=== PATIENT | female | born 1960 | race African-American/Black ===

== ENCOUNTER 2018-12-21 10:10 | Outpatient (CLI) | payer OTHER ==
--- NOTE | 2018-12-21 11:27 | MRI ---
MRI Lumbar Spine Noncontrast: HISTORY: Lumbar radicular pain. Patient states low back pain radiates to right hip. Symptoms were present for one year. COMPARISON: None FINDINGS: The visualized retroperitoneal structures demonstrate a normal appearance. Conus medullaris is normal in morphology and terminates at the L1-2 level. 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 This does result in S-shaped scoliotic curvature of the thoracolumbar spine. Normal signal intensity is demonstrated in the bone marrow. There is a left paracentral disc protrusion seen at the level of the vertebral anomaly on the left at the T10-12 level as there is a hemivertebra on the right at this level. Please see images for better delineation of this region. L1-2: No significant disc bulge or disc herniation. Mild facet degenerative changes are present. Neur al foramina are patent. L2-3: There is a mild disc osteophyte complex. Facet hypertrophic changes are noted. Findings result in mild narrowing of the central spinal canal with minimal right-sided neural foraminal narrowing. The left neural foramen is patent. L3-4: Mild disc osteophyte complex and facet hypertrophic changes. There is minimal effacement of the ventral aspect of the thecal sac with minimal bilateral neural foraminal narrowing. L4-5: There is a mild disc osteophyte complex and moderate facet hypertrophic changes. Findings resul t in mild narrowing of the central spinal canal with mild right-sided neural foraminal narrowing. The left neural foramen is patent L5-S1: There is a mild disc osteophyte complex present which does not result in significant narrowing central spinal canal. Facet hypertrophic changes are present at this level. Minimal left and mild right-sided neural foraminal narrowing is present. IMPRESSION: 1. 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 2. Mild multilevel disc degenerative changes without high-grade central canal or neural foraminal vee rowing.
== END 2018-12-21 10:11 | disposition home or self-care (01) ==
LOC: BICMRI 10:10
PROVIDERS: ATTEND Neurological Surgery
DX: M51.16 Intervertebral disc disorders with radiculopathy, lumbar region (principal); M43.8X5 Other specified deforming dorsopathies, thoracolumbar region
CPT/HCPCS: 72148

== ENCOUNTER 2021-01-21 12:35 | Outpatient (CLI) | payer BC | END 2021-01-21 12:36 | disposition home or self-care (01) | LOC: BICMRI 12:35 | PROVIDERS: ATTEND Neurological Surgery | DX: M54.50 Low back pain, unspecified (principal); M53.2X8 Spinal instabilities, sacral and sacrococcygeal region; M47.816 Spondylosis without myelopathy or radiculopathy, lumbar region | CPT/HCPCS: 72110; 72148 ==